=== PATIENT | male | born 1955 | race Caucasian/White ===

== ENCOUNTER 2022-07-27 13:34 | Observation (INO) ==
[2022-07-27] MEDS ORDERED: 0.9 % Sodium Chloride 1,000 ML IV ONE (14:06)
[2022-07-27] MEDS ORDERED: Acetaminophen IV 1,000 MG/100 ML BAG IVPB ONE ×2 (15:15→15:30)
[2022-07-27] MEDS ORDERED: Famotidine 20 MG/2 ML VIAL IVP ONE (15:15)
[2022-07-27] MEDS ORDERED: Famotidine 20 MG/2 ML VIAL ONE (15:30)
[2022-07-27 15:36] LABS: Basophils % 0.4 %; Eosinophils # 0.1 K/mcL (0.0-0.6); Eosinophils % 0.7 %; Hematocrit 40.5 % (37.5-50.1); Hemoglobin 13.5 g/dL (12.9-16.9); Immature Granulocytes % 0.1 % (0-4); Lymphocytes # 0.8 K/mcL (0.6-4.6); Lymphocytes % 10.8 %; Mean Corpuscular HGB Conc 33.3 g/dL (31.6-35.5); Mean Corpuscular Hemoglobin 31.3 pg (28.0-33.3); Mean Corpuscular Volume 93.8 fL (83.0-100.0); Monocytes # 0.7 K/mcL (0.0-1.3); Monocytes % 9.8 %; Neutrophils # 5.5 K/mcL (1.6-8.9); Platelet Count 205 K/mcL (140-400); Red Blood Count 4.32 M/mcL (4.19-5.50); Red Cell Distribution Width 13.3 % (11.5-14.5); Segmented Neutrophils % 78.2 %
[2022-07-27] MEDS ORDERED: *HR* HYDROmorphone PF 0.5 MG/0.5 ML SYRINGE IVP PRN (15:48)
[2022-07-27 15:55] LABS: BUN/Creatinine Ratio 9 (6-26); Blood Urea Nitrogen 7 mg/dL (8-23); Calcium 9.2 mg/dL (8.6-10.3); Carbon Dioxide 27 mEq/L (23-29); Chloride 100 mEq/L (98-107); Glucose 85 mg/dL (70-105); Osmolality,Calculated 277 (280-300); Sodium 135 mEq/L (136-145)
[2022-07-27] MEDS ORDERED: *HR* Midazolam HCl 2 MG/2 ML VIAL ONE (16:04)
[2022-07-27] MEDS ORDERED: *HR* FentaNYL (PF) 100 MCG/2 ML VIAL ONE (16:04)
[2022-07-27] MEDS ORDERED: Lidocaine -MPF 2% 2 ML VIAL ONE (16:04)
[2022-07-27] MEDS ORDERED: Ondansetron 4 MG/2 ML VIAL ONE (16:04)
[2022-07-27] MEDS ORDERED: *HR* Propofol 200 MG/20 ML VIAL IVP ONE (16:04)
[2022-07-27] MEDS ORDERED: Bupivacaine-MPF 0.25% 10 ML VIAL ONE (16:22)
[2022-07-27] MEDS ORDERED: CeFAZolin Syr 2,000MG/20 ML 2,000 MG/20 ML SYRINGE IVPB ONE (16:45)
[2022-07-27] MEDS ORDERED: Naloxone 0.4 MG/ML INJ IVP PRN (19:07)
[2022-07-27] MEDS ORDERED: Ibuprofen 400 MG TABLET PO PRN (19:07)
[2022-07-27] MEDS ORDERED: *HR* HYDROcodone/Acet 5/325 mg TABLET PO PRN (19:07)
[2022-07-27] MEDS ORDERED: *HR* OxyCODONE Immed Rel 5 MG TABLET PO PRN (19:07)
[2022-07-27 19:36] VITALS: TEMP 97.5
[2022-07-27 19:57] VITALS: BP 161/88; PULSE 75; O2SAT 97
== END 2022-07-27 20:04 | disposition home or self-care (01) ==
LOC: 3ANU 13:34 → EMEROOARM 13:34 → 3ANU 15:39
PROVIDERS: ADMIT Urology; ATTEND Urology